=== PATIENT | male | born 1955 ===

== ENCOUNTER 2020-06-24 10:16 | Emergency (ER) | payer OTHER ==
[~2020-06-24] VITALS: Ht 160 cm; Wt 73.9 kg
[2020-06-24] MEDS ORDERED: ATORVASTATIN CA20 MG PO (10:27)
[2020-06-24] MEDS ORDERED: STEGLUJAN 15-11 EACH PO (10:27)
[2020-06-24] MEDS ORDERED: LOSARTAN POTASS25 MG PO (10:27)
[2020-06-24] MEDS ORDERED: METFORMIN HCL1000 M3 PO (10:27)
[2020-06-24] MEDS ORDERED: CLONAZEPAM2 MG PO (10:28)
[2020-06-24] MEDS ORDERED: VITAMIN B-121000 MCG PO (10:28)
[2020-06-24] MEDS ORDERED: CENTRUM SILVER1 EAC1 PO (10:28)
== END 2020-06-24 15:12 | disposition home or self-care (01) ==
LOC: ER 10:16
DX: S00.03XA Contusion of scalp, initial encounter (principal); S60.222A Contusion of left hand, initial encounter; S60.221A Contusion of right hand, initial encounter; W01.198A Fall on same level from slipping, tripping and stumbling with subsequent striking against other object, initial encounter; Y93.55 Activity, bike riding; Y92.488 Other paved roadways as the place of occurrence of the external cause; Y99.8 Other external cause status